=== PATIENT | male | born 1980 | race Native Hawaiian/Other Pacific Islander ===

== ENCOUNTER 2016-12-20 13:23 | Emergency (ER) | payer OTHER ==
[~2016-12-20] VITALS: Ht 182.9 cm; Wt 87.5 kg
== END 2016-12-20 14:15 | disposition home or self-care (01) ==
LOC: ED 13:23
DX: L03.113 Cellulitis of right upper limb (principal); L81.8 Other specified disorders of pigmentation
CPT/HCPCS: 99282